=== PATIENT | female | born 1965 | race Caucasian/White ===

== ENCOUNTER 2020-09-05 06:13 | Day surgery (SDC) | payer OTHER ==
[~2020-09-05] VITALS: Ht 167.6 cm; Wt 107.3 kg
[2020-09-05] MEDS ORDERED: SODIUM CHLORIDE 0.9% 1,000 ML IV ONE (06:30)
[2020-09-05] MEDS ORDERED: SODIUM CHLORIDE 0.9% 1,000 ML ONE (06:42)
[2020-09-05 07:34] LABS: COVID AG,FIA SOURCE NASOPHARYNGEAL
[2020-09-05] MEDS ORDERED: ACYC400T20 PO (07:42)
[2020-09-05] MEDS ORDERED: GABA-1181 PO (07:42)
[2020-09-05] MEDS ORDERED: FLUT16H NASAL (07:42)
[2020-09-05] MEDS ORDERED: TRAZ-252 PO (07:42)
[2020-09-05] MEDS ORDERED: MONT-35 PO (07:42)
[2020-09-05] MEDS ORDERED: DULO20CA27 PO (07:42)
[2020-09-05] MEDS ORDERED: MIDAZOLAM HCL 5 MG/ML VIAL ONE (08:01)
[2020-09-05] MEDS ORDERED: FentaNYL CITRATE PF 100 MCG/2 ML VIAL ONE (08:01)
[2020-09-05] MEDS ORDERED: MethylPREDNISolone SOD SUCC 125 MG/2 ML VIAL IVP ONE (09:00)
[2020-09-05] MEDS ORDERED: MethylPREDNISolone SOD SUCC 125 MG/2 ML VIAL ONE (09:29)
[2020-09-05] MEDS ORDERED: OXYGEN THERAPY IH SCH (20:00)
== END 2020-09-05 10:40 | disposition home or self-care (01) ==
LOC: SURGERY 06:13
PROVIDERS: ATTEND Internal Medicine Critical Care Medicine
DX: J38.4 Edema of larynx (principal); B37.0 Candidal stomatitis; Z87.891 Personal history of nicotine dependence; Z72.89 Other problems related to lifestyle; Z98.890 Other specified postprocedural states
CPT/HCPCS: 31623; 31624; 71045; 87015; 87070; 87101; 87206; 87220; 87426; 88108; 88184; 88185; 88312; C9803; J2250; J2930; J3010; J7030

== ENCOUNTER → 2025-01-16 | Day surgery (SDC) | payer OTHER ==
[~2025-01-16] VITALS: Ht 167.6 cm; Wt 90.9 kg
[~2025-01-16] MED LIST: ACYC-428 PO; ALBUTEROL SULFATE 2.5 MG/0.5 ML NEB SOLUTION NEB ONE; BENZOCAINE 20% 50 MCG/SPRAY 57 GM ONE; DULO20CA23 PO; FLUT16SP NASAL; FentaNYL CITRATE PF 100 MCG/2 ML VIAL ONE; GABA-1181 PO; LIDOCAINE 2% 11 ML JELLY ONE; LIDOCAINE 4% 50 ML SOLUTION ONE; MIDAZOLAM HCL 2 MG/2 ML VIAL ONE; MONT-35 PO; SODIUM CHLORIDE 0.9% 1,000 ML ONE; TRAZ-252 PO
[2025-01-16] MEDS: SODIUM CHLORIDE 0.9% 1,000 ML IV ONE (07:34)
[2025-01-16 09:30] VITALS: PULSE 64; RESP 18; O2SAT 95
== END | disposition home or self-care (01) ==
LOC: SURGERY 06:22
PROVIDERS: ATTEND Internal Medicine Critical Care Medicine
DX: J38.4 Edema of larynx (principal); B37.0 Candidal stomatitis; I25.10 Atherosclerotic heart disease of native coronary artery without angina pectoris; R05.3 Chronic cough; R06.2 Wheezing
CPT/HCPCS: 87206; 87101; 87220; 87070; 88108; 31623; 31624; 71045; 87015; J3010; J2250; J2919; J7030; J7613; Z7610